=== PATIENT | female | born 1960 | race Caucasian/White ===

== ENCOUNTER 2022-05-01 08:37 | Emergency (ER) | payer BC ==
[~2022-05-01] VITALS: Ht 154.9 cm; Wt 73.5 kg
[2022-05-01 08:50] VITALS: BP_SYST 129
--- NOTE | 2022-05-01 09:14 | NUR ---
Patient to ER bed 7 for evaluation. Side rails up. Report given to Rolando YUSUF.
--- NOTE | 2022-05-01 09:15 | NUR ---
ER AT BEDSIDE
--- NOTE | 2022-05-01 09:35 | NUR ---
a/ox4 vss , cold pack applied
--- NOTE | 2022-05-01 09:52 | NUR ---
PT RETURNED FROM CT AT THIS TIME
[2022-05-01] MEDS ORDERED: BACITRACIN 1 GM OINT TP ONE (11:30)
[2022-05-01] MEDS ORDERED: DIPH-TET-PERTUS Vaccine 0.5 ML VIAL (ADACEL) I.M. ONE (11:30)
--- NOTE | 2022-05-01 12:06 | NUR ---
Patient given written and verbal discharge instructions and verbalizes understanding. ER MD discussed with patient the results and treatment provided. Patient in stable condition. Opportunity for questions provided and answered. Medication side effect fact sheet provided.
--- NOTE | 2022-05-01 12:07 | NUR ---
A/OX4 VSS VERBALIZED UNDERSTANDING OF DC INSTRUCTIONS ALL QUESTIONS ANSWERED
== END 2022-05-01 12:06 | disposition home or self-care (01) ==
LOC: SED 08:37
DX: S01.01XA Laceration without foreign body of scalp, initial encounter (principal); Z79.899 Other long term (current) drug therapy; W22.8XXA Striking against or struck by other objects, initial encounter; Y93.89 Activity, other specified; Y92.89 Other specified places as the place of occurrence of the external cause; Y99.8 Other external cause status
CPT/HCPCS: 70450-TC; 76376; 99284